=== PATIENT | female | born 1950 | race Caucasian/White ===

== ENCOUNTER 2017-04-11 13:58 | Inpatient (IN) ==
[2017-04-11] MEDS ORDERED: Fluticasone Propionate Nasal 50 MCG/SPRAY BOTTLE NS PRN (14:56)
[2017-04-11] MEDS ORDERED: *HR* OxyCODONE Immed Rel 5 MG TABLET PO PRN (14:56)
--- NOTE | 2017-04-11 15:20 | Internal Med History&Physical ---
Date of Encounter: 04/11/17 Time of Encounter: 15:46 Assessment and Plan (1) Anterolisthesis Current visit: No Status: Acute Noted (2) Radicular pain of lower extremity Current visit: No Status: Acute History of pre-intense pain especially lately. (3) Lumbar stenosis Current visit: No Status: Chronic Postop this should have been eliminated (4) Spondylolisthesis Current visit: No Status: Chronic Noted Qualifiers: Spinal region: unspecified Qualified Code(s): M43.10 - Spondylolisthesis, site unspecified Internal Medicine - H&P: HPI Chief complaint: Status post back surgery with hardware. Admitted From: Hospital to Hospital Transfer Plans for Post Hospital Care: Home History of present illness: Ms. Jacobo is a 66 year old female Past Med Surg Social Fam HX - Past Medical History Medical history: arthritis, diabetes, GERD, hypertension Psychiatric history: no psych history - Social History Smoking Status: Never smoker Smokeless Tobacco Status: No Alcohol use: rarely Drug use: none - Family History Mother Living Status: Hx Family Cancer: Yes Hx Family Endocrine Disorder: Yes (diabetes) Hx Family Neuromuscular Disorders: Yes (Parkinsons) Father Living Status: Hx Family Cardiac Disorders: Yes Internal Medicine - H&P: Meds Atorvastatin Calcium [Lipitor] 40 mg PO DAILY 11/06/15 [History] Esomeprazole Magnesium [Nexium] 40 mg PO DAILY 11/06/15 [History] Fluticasone Propionate Nasal [Flonase] 50 mcg NS DAILY PRN 11/06/15 [History] Insulin DETEMIR [Levemir] 32 unit SQ HS 11/06/15 [History] Furosemide [Lasix] 20 mg PO DAILY 04/08/17 [History] Liraglutide [Victoza 2-Mendez] 0.6 mg SQ DAILY 04/08/17 [History] Losartan Potassium [Cozaar] 50 mg PO DAILY 04/08/17 [History] Cyclobenzaprine [Flexeril] 10 mg PO TID PRN 04/11/17 [History] Docusate [Colace] 100 mg PO BID 04/11/17 [History] Enoxaparin [Lovenox] 40 mg SQ DAILY 04/11/17 [History] OxyCODONE Immed Rel [Roxicodone 5 MG] 5 mg PO Q4H PRN #30 tab 04/11/17 [Rx] Polyethylene Glycol 3350 [MiraLAX] 17 gm PO BID 04/11/17 [History] Allergies pepper Allergy (Verified 04/10/17 17:17) Anaphylaxis All Systems PM: A 10-system review of systems was performed and is negative for pertinent findings except as documented above in the HPI. - Head Head exam: Present: normal inspection - Neck Neck exam general surgery: Present: supple, trachea midline. Absent: lymphadenopathy - Respiratory Respiratory exam: Present: CTAB. Absent: accessory muscle use, rales, rhonchi, wheezes - Cardiovascular Cardiovascular exam: Present: RRR, +S1, +S2. Absent: diastolic murmur, gallop, rubs, systolic murmur - GI/Abdominal GI/Abdominal exam: Present: normal bowel sounds, soft, no peritoneal signs. Absent: distended, tenderness - Extremities Exam Extremities exam: Present: normal inspection, radial pulses palpable and symetrical Additional comments: No edema - Incison Incision: Present: clean and dry Internal Med - H&P Results - Labs Labs: Lab is pending
[2017-04-11] MEDS ORDERED: *HR* OxyCODONE/APAP 10/325 TABLET PO PRN (15:51)
[2017-04-11] MEDS: *HR* OxyCODONE/APAP 10/325 TABLET PO SCH ×2 (16:36→20:32)
[2017-04-11] MEDS: Insulin DETEMIR 100 UNIT/ML X5UNITS SQ SCH (20:39)
[2017-04-12] MEDS: *HR* OxyCODONE/APAP 10/325 TABLET PO SCH ×6 (02:56→20:30)
[2017-04-12 04:37] LABS: Basophils % 0.3 %; Eosinophils # 0.3 K/mcL (0.0-0.6); Hematocrit 28.2 % (35.3-44.9); Hemoglobin 9.5 g/dL (11.5-15.4); INR 1.2; Immature Granulocytes % 0.8 % (0-4); Lymphocytes # 1.3 K/mcL (0.6-4.6); Lymphocytes % 21.5 %; Mean Corpuscular HGB Conc 33.7 g/dL (31.6-35.5); Mean Corpuscular Hemoglobin 28.4 pg (28.0-33.3); Mean Corpuscular Volume 84.2 fL (83.0-100.0); Mean Platelet Volume 10.4 fL (9.4-12.4); Monocytes # 0.6 K/mcL (0.0-1.3); Monocytes % 8.8 %; Platelet Count 162 K/mcL (140-400); Prothrombin Time 12.5 Seconds (9.4-12.1); Red Blood Count 3.35 M/mcL (3.82-4.97); Red Cell Distribution Width 13.6 % (11.5-14.5); Segmented Neutrophils % 63.6 %
[2017-04-12 04:40] LABS: Activated Partial Thrombo Time 26.2 Seconds (26.0-36.0)
[2017-04-12 04:43] LABS: Neutrophils # 3.9 K/mcL (1.6-8.9)
[2017-04-12 04:46] LABS: BUN/Creatinine Ratio 14 (6-26); Blood Urea Nitrogen 15 mg/dL (7-20); Calcium 8.8 mg/dL (8.6-10.8); Carbon Dioxide 27 mEq/L (19-29); Chloride 99 mEq/L (98-109); Glucose 91 mg/dL (70-99); Osmolality,Calculated 278 (280-300); Potassium 3.4 mEq/L (3.5-4.5); Sodium 134 mEq/L (136-145); eGFR For African Americans > 60 (> 60); eGFR For Non-African Americans 52 (> 60)
[2017-04-12] MEDS: *HR* Enoxaparin 40 MG/0.4 ML SYRINGE SQ SCH (06:05)
[2017-04-12] MEDS: Furosemide 20 MG TABLET PO SCH (08:26)
[2017-04-12] MEDS: (Liraglutide [Victoza 2-Pak] 0.6 MG) SQ SCH (08:27)
--- NOTE | 2017-04-12 11:17 | Internal Med Progress Note ---
Date of Encounter: 04/12/17 Time of Encounter: 11:14 - Assessment and plan (1) Anterolisthesis Current Visit: No Status: Acute Assessment and plan: Patient had surgery for the changes in her back [place] (2) Radicular pain of lower extremity Current Visit: No Status: Acute Assessment and plan: The ramifications of her back trouble (3) Lumbar stenosis Current Visit: No Status: Chronic Assessment and plan: Patient had lumbar stenosis which was relieved. (4) Spondylolisthesis Current Visit: No Status: Chronic Assessment and plan: Noted Qualifiers: Spinal region: unspecified Qualified Code(s): M43.10 - Spondylolisthesis, site unspecified - Time Spent With Patient less than 15 minutes - Subjective Interval history: Patient is doing very well. Tolerating . therapy pain is reasonably controlled and patient has not misery attempting therapy she is dressed up and eating doing very well so far she should go home early next week. - Constitutional Vitals: Temp Pulse Resp BP Pulse Ox 98.0 F 73 18 111/74 93 04/12/17 07:33 04/12/17 07:33 04/12/17 07:33 04/12/17 07:33 04/12/17 07:33 - Head Head exam: Present: atraumatic, normal inspection, normocephalic - Neck Neck exam general surgery: Present: supple, trachea midline. Absent: lymphadenopathy - Respiratory Respiratory exam: Present: CTAB. Absent: accessory muscle use, rales, rhonchi, wheezes - Cardiovascular Cardiovascular exam: Present: RRR, +S1, +S2. Absent: diastolic murmur, gallop, rubs, systolic murmur Internal Medicine: Result - Labs CBC & Chem 7: 04/12/17 04:20 04/12/17 04:20 Labs: Short CBC 04/12/17 Range/Units 04:20 WBC 6.2 D (4.3-11.1) K/mcL Hgb 9.5 L (11.5-15.4) g/dL Hct 28.2 L (35.3-44.9) % Plt Count 162 (140-400) K/mcL Neutrophils # 3.9 (1.6-8.9) K/mcL BMP 04/12/17 04:20 Sodium 134 L Potassium 3.4 L Chloride 99 Carbon Dioxide 27 BUN 15 Creatinine 1.06 Glucose 91 Calcium 8.8 Labs okay we will have to follow potassium - ABG Interpretation ABG results: PT/INR, D-dimer PT 12.5 Seconds (9.4-12.1) H 04/12/17 04:20 Consult Discharge Plan - Plan Referrals: Sepideh Altman CNP [Primary Care Provider] -
[2017-04-12] MEDS: Insulin DETEMIR 100 UNIT/ML X5UNITS SQ SCH (20:30)
[2017-04-13] MEDS: *HR* OxyCODONE/APAP 10/325 TABLET PO SCH ×7 (01:15→22:49)
[2017-04-13] MEDS: *HR* Enoxaparin 40 MG/0.4 ML SYRINGE SQ SCH (06:35)
[2017-04-13] MEDS: Furosemide 20 MG TABLET PO SCH (09:28)
[2017-04-13] MEDS: (Liraglutide [Victoza 2-Pak] 0.6 MG) SQ SCH (09:29)
[2017-04-13] MEDS: Insulin DETEMIR 100 UNIT/ML X5UNITS SQ SCH (22:49)
[2017-04-14] MEDS: *HR* OxyCODONE/APAP 10/325 TABLET PO SCH ×6 (02:40→23:47)
[2017-04-14 06:02] LABS: Hematocrit 27.3 % (35.3-44.9); Hemoglobin 9.1 g/dL (11.5-15.4); Mean Corpuscular HGB Conc 33.3 g/dL (31.6-35.5); Mean Corpuscular Hemoglobin 28.2 pg (28.0-33.3); Mean Corpuscular Volume 84.5 fL (83.0-100.0); Platelet Count 187 K/mcL (140-400); Red Blood Count 3.23 M/mcL (3.82-4.97); Red Cell Distribution Width 13.4 % (11.5-14.5)
[2017-04-14 06:13] LABS: BUN/Creatinine Ratio 11 (6-26); Blood Urea Nitrogen 10 mg/dL (7-20); Carbon Dioxide 26 mEq/L (19-29); Chloride 101 mEq/L (98-109); Glucose 92 mg/dL (70-99); Osmolality,Calculated 279 (280-300); Potassium 3.8 mEq/L (3.5-4.5); Sodium 135 mEq/L (136-145); eGFR For African Americans > 60 (> 60); eGFR For Non-African Americans 59 (> 60)
[2017-04-14] MEDS: *HR* Enoxaparin 40 MG/0.4 ML SYRINGE SQ SCH (06:44)
[2017-04-14] MEDS: Furosemide 20 MG TABLET PO SCH (08:40)
[2017-04-14] MEDS: (Liraglutide [Victoza 2-Pak] 0.6 MG) SQ SCH (08:41)
[2017-04-14] MEDS: Insulin DETEMIR 100 UNIT/ML X5UNITS SQ SCH (20:46)
--- NOTE | 2017-04-14 20:47 | Internal Med Progress Note ---
Date of Encounter: 04/14/17 Time of Encounter: 20:45 - Assessment and plan (1) S/P lumbar fusion Current Visit: Yes Status: Acute Assessment and plan: Patient status post lumbar fusion of L4-[address] Rubio. She is appropriate back pain, but no more neurogenic claudication of lower extremities. She is advancing nicely with her ADLs. Pain is under good control. Plan for discharge in 2 days if continues to be stable. Incision healing well. (2) Neurogenic claudication due to lumbar spinal stenosis Current Visit: Yes Status: Resolved Assessment and plan: No longer has neurogenic claudication status post surgery. (3) Spondylolisthesis at L4-L5 level Current Visit: Yes Status: Resolved Assessment and plan: Spondylolisthesis resolved with lumbar fusion (4) Insulin dependent diabetes mellitus Current Visit: Yes Status: Chronic Assessment and plan: Continues with her insulin-dependent diabetes. Her last glycohemoglobin was 9.3 %. Her sugars here have been well controlled. (5) Constipation Current Visit: Yes Status: Acute Assessment and plan: Her bowels have not moved since surgery. She is passing gas. No abdominal pain. No signs of obstruction. Medications will be reviewed and will bump up her medication. Qualifiers: Constipation type: other constipation type Qualified Code(s): K59.09 - Other constipation (6) Postoperative anemia Current Visit: Yes Status: Acute Assessment and plan: Her hemoglobin drop has stabilized after surgery. No active bleeding noted. We will follow. - Subjective Interval history: Patient is 66-year-old woman with known history of spinal stenosis, spondylolisthesis and neurogenic claudication who underwent L4-5 anterior and posterior fusion by Dr. Rubio. Today she said things went well. She is looking forward to going home in 2 days. She is able to ambulate without much difficulty. She is able to get in and out of bed, take her brace on and off, walk 200 feet with just standby assistance. She denies any chest pain, palpitation, dyspnea, abdominal pain. She denies any lower extremity pain when she is walking. She has appropriate incisional pain in her back. Her only complaint is that her bowels have not moved. She is passing gas. She denies abdominal pain or vomiting or nausea. - Constitutional Vitals: Temp Pulse Resp BP Pulse Ox 97.7 F 94 17 123/82 93 04/14/17 19:00 04/14/17 19:00 04/14/17 19:00 04/14/17 19:00 04/14/17 19:00 General appearance: Present: A&O X 3, no acute distress, obese, answers questions appropriately - Respiratory Respiratory exam: Present: CTAB - Cardiovascular Cardiovascular exam: Present: RRR, +S1, +S2. Absent: systolic murmur - GI/Abdominal GI/Abdominal exam: Present: normal bowel sounds, soft, no peritoneal signs. Absent: mass, tenderness - Extremities Exam Extremities exam: Present: normal capillary refill. Absent: calf tenderness, pedal edema Additional comments: Good dorsalis pedis pulses bilaterally. - Incison Comments: I evaluated the incision earlier today with the nurse at dressing change. It is healing nicely. There is no fluctuance, no redness, there is appropriate eschar. Internal Medicine: Result - Labs CBC & Chem 7: 04/14/17 05:40 04/14/17 05:40 Labs: Short CBC 04/14/17 Range/Units 05:40 WBC 5.1 (4.3-11.1) K/mcL Hgb 9.1 L (11.5-15.4) g/dL Hct 27.3 L (35.3-44.9) % Plt Count 187 (140-400) K/mcL [facility] 04/14/17 05:40 Sodium 135 L Potassium 3.8 Chloride 101 Carbon Dioxide 26 BUN 10 Creatinine 0.94 Glucose 92 Calcium 9.0 Labs have been reviewed and hemoglobin is stable. Sodium is improved. Potassium is normal now. - ABG Interpretation ABG results: PT/INR, D-dimer PT 12.5 Seconds (9.4-12.1) H 04/12/17 04:20 Consult Discharge Plan - Plan Referrals: Sepideh Altman, [employer] [Primary Care Provider] -
[2017-04-14] MEDS ORDERED: MOM Conc 10 ML UD.LIQ PO ONE (20:56)
[2017-04-15] MEDS: *HR* Enoxaparin 40 MG/0.4 ML SYRINGE SQ SCH (04:10)
[2017-04-15] MEDS: *HR* OxyCODONE/APAP 10/325 TABLET PO SCH ×6 (04:10→23:57)
[2017-04-15] MEDS: Furosemide 20 MG TABLET PO SCH (08:34)
[2017-04-15] MEDS: (Liraglutide [Victoza 2-Pak] 0.6 MG) SQ SCH (08:35)
--- NOTE | 2017-04-15 15:42 | Physician Discharge Referral ---
Home Health/Hosp Referral Info Transfer to: Home Health Provider in Charge Post Discharge: PCP - Diagnosis (1) S/P lumbar fusion Status: Acute (2) Neurogenic claudication due to lumbar spinal stenosis Status: Resolved (3) Spondylolisthesis at L4-L5 level Status: Resolved (4) Insulin dependent diabetes mellitus Status: Chronic (5) Constipation Status: Acute (6) Postoperative anemia Status: Acute - Respiratory Orders Smoking Cessation: Smoking cessation has been advised. For more information, call the [employer] Quit Line at 7-591-TWWU-NOW. - Dressing/Wound Care Site: Lumbar incision dressing changes - Services Needed Following services are medically necessary services: Nursing, Physical Therapy - Transfer Medications Home Medications: Atorvastatin Calcium [Lipitor] 40 mg PO DAILY 11/06/15 [History] Esomeprazole Magnesium [Nexium] 40 mg PO DAILY 11/06/15 [History] Fluticasone Propionate Nasal [Flonase] 50 mcg NS DAILY PRN 11/06/15 [History] Insulin DETEMIR [Levemir] 32 unit SQ HS 11/06/15 [History] Furosemide [Lasix] 20 mg PO DAILY 04/08/17 [History] Liraglutide [Victoza 2-Mendez] 0.6 mg SQ DAILY 04/08/17 [History] Losartan Potassium [Cozaar] 50 mg PO DAILY 04/08/17 [History] Cyclobenzaprine [Flexeril] 10 mg PO TID PRN 04/11/17 [History] Docusate [Colace] 100 mg PO BID 04/11/17 [History] OxyCODONE Immed Rel [Roxicodone 5 MG] 5 mg PO Q4H PRN #30 tab 04/11/17 [Rx] Polyethylene Glycol 3350 [MiraLAX] 17 gm PO BID 04/11/17 [History] Allergies/Adverse Reactions: Allergies pepper Allergy (Verified 04/10/17 17:17) Anaphylaxis Certification: Further, I certify that my clinical findings support that this patient is homebound (i.e. absences from home require considerable and taxing effort and are for medical reasons or orthodoxy services or infrequently or short duration when for other reasons) because: Recent lumbar fusion surgery. It is difficult for her to be out of the house. Requires home physical therapy for a while Homebound Reason: Post-surgery restriction and or conditions limit ability to leave home Attestation: My signature below is to certify that this patient is under my care and that I, or nurse practitioner, or a physician's diver assistant working with me, has a face-to -face encounter with this patient.
--- NOTE | 2017-04-15 15:44 | Internal Med Progress Note ---
Date of Encounter: 04/15/17 Time of Encounter: 15:42 - Assessment and plan (1) S/P lumbar fusion Current Visit: Yes Status: Acute Assessment and plan: Doing quite well. Pain is controlled. Incision has been healing nicely. Plan for discharge tomorrow. (2) Neurogenic claudication due to lumbar spinal stenosis Current Visit: Yes Status: Resolved Assessment and plan: She has no neurogenic claudication pain in the lower extremities. (3) Spondylolisthesis at L4-L5 level Current Visit: Yes Status: Resolved (4) Insulin dependent diabetes mellitus Current Visit: Yes Status: Chronic Assessment and plan: Sugars have been under adequate control. (5) Constipation Current Visit: Yes Status: Resolved Assessment and plan: She had a good bowel movement this morning. Recommend continue stool softener. Qualifiers: Constipation type: other constipation type Qualified Code(s): K59.09 - Other constipation (6) Postoperative anemia Current Visit: Yes Status: Acute Assessment and plan: No signs of active bleeding. Her postop hemoglobin is stable now. - Subjective Interval history: Patient is doing quite well. She is eager about the thought of going home tomorrow. She did well on her out of hospital experience today going to a local diner. She had no difficulties with her ambulation. She is able to get out of bed or chair independently, take her brace on and off, etc. Her bowels have finally moved. Her pain is under appropriate control. She has no neurogenic claudication pain in her lower extremities now. - Constitutional Vitals: Temp Pulse Resp BP Pulse Ox 98.3 F 83 95 114/81 93 04/15/17 07:00 04/15/17 07:00 04/15/17 07:00 04/15/17 07:00 04/14/17 19:00 General appearance: Present: A&O X 3, no acute distress, obese, answers questions appropriately - Respiratory Respiratory exam: Present: CTAB - Cardiovascular Cardiovascular exam: Present: RRR, +S1, +S2. Absent: systolic murmur - Extremities Exam Extremities exam: Absent: calf tenderness, pedal edema - Incison Comments: Dressing intact. No signs of infection. I will evaluate with nurse at dressing change time later today Internal Medicine: Result - Labs CBC & Chem 7: 04/14/17 05:40 04/14/17 05:40 - ABG Interpretation ABG results: PT/INR, D-dimer PT 12.5 Seconds (9.4-12.1) H 04/12/17 04:20 Consult Discharge Plan - Plan Referrals: Sepideh Altman CNP [Primary Care Provider] -
--- NOTE | 2017-04-15 15:48 | Discharge Summary ---
Date of Encounter: 04/16/17 Time of Encounter: 10:55 - Discharge Diagnosis (1) S/P lumbar fusion Priority: Primary Status: Acute Comments: Patient underwent posterior lumbar interbody fusion L4-L5 by Dr. Rubio on 04/10. She was transferred to [facility] for therapy. She did extremely well. Her incision is healing nicely. She no longer has lower extremity neurogenic claudication. She has advanced appropriate with her PT and OT and recreational therapy. She may community visit to a local diner and did well with those ADLs. She is ready for discharge to home. We are arranging home health for home physical therapy. She has follow-up appointment with the surgeon's office for next week. She has a prescription for oxycodone from Dr. Rubio. She is still requiring that about every 6 hours without complication. (2) Neurogenic claudication due to lumbar spinal stenosis Priority: Secondary Status: Resolved Comments: She no longer has neurogenic claudication and lower extremities while ambulating. She has appropriate postop lumbar pain from her incision. (3) Spondylolisthesis at L4-L5 level Priority: Secondary Status: Resolved (4) Insulin dependent diabetes mellitus Priority: Secondary Status: Chronic Comments: During hospital stay her blood sugars have been appropriately controlled. She will continue her current medications at home and follow-up with her PCP for ongoing diabetic care. (5) Postoperative anemia Priority: Secondary Status: Acute Comments: Minimal postop anemia. Her last hemoglobin was 9.1. No active bleeding is noted. - Discharge Medications Prescriptions: Cyclobenzaprine [Flexeril] 10 mg PO TID PRN #60 PRN Reason: spasm Home Medications: Atorvastatin Calcium [Lipitor] 40 mg PO DAILY 11/06/15 [History] Esomeprazole Magnesium [Nexium] 40 mg PO DAILY 11/06/15 [History] Fluticasone Propionate Nasal [Flonase] 50 mcg NS DAILY PRN 11/06/15 [History] Insulin DETEMIR [Levemir] 32 unit SQ HS 11/06/15 [History] Furosemide [Lasix] 20 mg PO DAILY 04/08/17 [History] Liraglutide [Victoza 2-Mendez] 0.6 mg SQ DAILY 04/08/17 [History] Losartan Potassium [Cozaar] 50 mg PO DAILY 04/08/17 [History] Docusate [Colace] 100 mg PO BID 04/11/17 [History] OxyCODONE Immed Rel [Roxicodone 5 MG] 5 mg PO Q4H PRN #30 tab 04/11/17 [Rx] Polyethylene Glycol 3350 [MiraLAX] 17 gm PO BID 04/11/17 [History] Cyclobenzaprine [Flexeril] 10 mg PO TID PRN #60 04/16/17 [Rx] Allergies/Adverse Reactions: Allergies pepper Allergy (Verified 04/10/17 17:17) Anaphylaxis Procedures/tests Complete & Pending: Laboratory Results - last 48 hr 04/13/17 04/13/17 04/13/17 07:38 11:39 16:00 WBC RBC Hgb Hct MCV MCH MCHC RDW Plt Count MPV Sodium Potassium Chloride Carbon Dioxide BUN Creatinine Est GFR ( Amer) Est GFR (Non-Af Amer) BUN/Creatinine Ratio Glucose POC Glucose 97 H 133 H 143 H Calculated Osmolality Calcium 04/13/17 04/14/17 04/14/17 19:57 05:40 05:40 WBC 5.1 RBC 3.23 L Hgb 9.1 L Hct 27.3 L MCV 84.5 MCH 28.2 MCHC 33.3 RDW 13.4 Plt Count 187 MPV 10.0 Sodium 135 L Potassium 3.8 Chloride 101 Carbon Dioxide 26 BUN 10 Creatinine 0.94 Est GFR ( Amer) > 60 Est GFR (Non-Af Amer) 59 L BUN/Creatinine Ratio 11 Glucose 92 POC Glucose 185 H Calculated Osmolality 279 L Calcium 9.0 04/14/17 04/14/17 04/14/17 08:03 11:42 16:32 WBC RBC Hgb Hct MCV MCH MCHC RDW Plt Count MPV Sodium Potassium Chloride Carbon Dioxide BUN Creatinine Est GFR ( Amer) Est GFR (Non-Af Amer) BUN/Creatinine Ratio Glucose POC Glucose 82 116 H 107 H Calculated Osmolality Calcium 04/14/17 04/15/17 20:27 11:12 WBC RBC Hgb Hct MCV MCH MCHC RDW Plt Count MPV Sodium Potassium Chloride Carbon Dioxide BUN Creatinine Est GFR ( Amer) Est GFR (Non-Af Amer) BUN/Creatinine Ratio Glucose POC Glucose 116 H 141 H Calculated Osmolality Calcium Date of admission: 04/11/17 13:58 Primary care physician: Sepideh Altman CNP Consults: 04/11/17 15:17 Consult to Occupational Therapy [CONS] Routine Comment: Evaluate, develop and implement POC Reason for Consult: eval and treat Consult to Physical Therapy [CONS] Routine Comment: Evaluate, develop and implement POC Reason for Consult: eval and treat Consult to Recreational Therapy [CONS] Routine Comment: Evaluate, develop and implement POC Consult to Supervisor Cigarette Making Department [CONS] Routine Reason for SW Consult: discharge planning Discharging clinician: Matt London Anticipated date of discharge: 04/16/17 - Patient Status Disposition: Home Health Service Condition: Good Functional capacity at discharge: uses cane/walker Overall status at discharge: patient is progressing back to baseline - Discharge Instructions Follow Up With: Jayshree Coppola PAC [Physician Cooper Helper] - 04/22/17 9:10 am Ronald Owusu CNP [Advanced Practice Nurse] - 05/20/17 9:30 am - Diet and Activity Activity: as per physical therapy Diet: diabetic diet Interval History: Today patient reports no chest pain, palpitation, dyspnea, abdominal pain or extremity pain. Her bowels are now starting to move normally. She has appropriate incisional postop pain in her oxycodone is working well. She wants to be sure she has cyclobenzaprine/Flexeril available for when necessary use for spasms. She will be discharged today. Hospital course: Ms. Jacobo is a 66 year old female who had severe spinal stenosis, spondylolisthesis and neurogenic claudication. She underwent lumbar fusion of L5-[address] Rubio. She was transferred to our rehabilitation unit for therapy. She advanced nicely. Please see the previous diagnoses listed above. - Time Spent with Patient Total time spent providing and/or coordinating discharge services: - Constitutional Vitals: Temp Pulse Resp BP Pulse Ox 98.3 F 83 95 114/81 93 04/15/17 07:00 04/15/17 07:00 04/15/17 07:00 04/15/17 07:00 04/14/17 19:00 General appearance: Present: A&O X 3, no acute distress, obese, answers questions appropriately - Respiratory Respiratory exam: Present: CTAB - Cardiovascular Cardiovascular exam: Present: RRR, +S1, +S2 - Extremities Exam Extremities exam: Absent: calf tenderness, pedal edema - Incison Comments: I saw her incision last night and it is clean and dry and healing well. Sutures are still intact. Sterile dressing changed daily
[2017-04-15] MEDS: Insulin DETEMIR 100 UNIT/ML X5UNITS SQ SCH (20:33)
[2017-04-16] MEDS: *HR* OxyCODONE/APAP 10/325 TABLET PO SCH ×3 (03:54→11:47)
[2017-04-16] MEDS: *HR* Enoxaparin 40 MG/0.4 ML SYRINGE SQ SCH (03:54)
[2017-04-16 07:05] VITALS: BP 124/85
[2017-04-16] MEDS: Furosemide 20 MG TABLET PO SCH (08:08)
[2017-04-16] MEDS: (Liraglutide [Victoza 2-Pak] 0.6 MG) SQ SCH (08:09)
== END 2017-04-16 13:35 | disposition home health service (06) | DRG 949 ==
LOC: INPGRE 13:58
PROVIDERS: ADMIT Internal Medicine; ATTEND Internal Medicine